=== PATIENT | female | born 1950 | race Caucasian/White ===

== ENCOUNTER 2021-07-22 08:42 | Observation (INO) ==
[~2021-07-22 08:42] MED LIST: Buffered Lidocaine 1% SYRIN 1 ml INTRADERM ONE; Famotidine IV 10 MG/ML 2 ml VIAL (20 mg) IV ONE; Lactated Ringers 1000 ml BAG 1,000 ML IV SCH; Levalbuterol 0.63MG/3ML NEB UNIT OF USE INH ONE
[2021-07-22] MEDS ORDERED: ceFAZolin 2 GM PREMIX 2 GM/50 ML BAG ONE (09:02)
[2021-07-22] MEDS ORDERED: Famotidine IV 10 MG/ML 2 ml VIAL (20 mg) ONE (09:02)
[2021-07-22] MEDS ORDERED: Levalbuterol 0.63MG/3ML NEB UNIT OF USE INH ONE (09:04)
[2021-07-22] MEDS ORDERED: Bupivacaine 0.5% W/EPI SDV 10 ML VIAL INJ ONE ×2 (10:28→10:38)
[2021-07-22] MEDS ORDERED: Propofol 10 MG/ML 20 ML BTL ONE (10:56)
[2021-07-22] MEDS ORDERED: Lidocaine 2% PF 5 ML VIAL ONE ×2 (10:56→13:05)
[2021-07-22] MEDS ORDERED: fentaNYL 250 mcg/5 ml 50 MCG/ML 5 ml VIAL (250 MCG) ONE (10:58)
[2021-07-22] MEDS ORDERED: Rocuronium 50 mg VIAL 10 mg/ml 5 ml VIAL (50 mg) ONE (10:59)
[2021-07-22] MEDS ORDERED: HYDROmorphone 0.5 MG/0.5 ML SYRINGE ONE ×2 (11:40→13:13)
[2021-07-22] MEDS ORDERED: Naloxone 0.4 mg VIAL 0.4 mg/ml 1 ml VIAL IV PRN (12:50)
[2021-07-22] MEDS ORDERED: Levalbuterol 0.63MG/3ML NEB UNIT OF USE INH PRN (12:50)
[2021-07-22] MEDS ORDERED: HYDROcodone/ACETAMIN 5/325 mg TAB PO PRN (12:50)
[2021-07-22] MEDS ORDERED: DiMENhydriNATE IV 50 mg/ml 1 ml VIAL IV PUSH PRN (12:50)
[2021-07-22] MEDS ORDERED: Ondansetron 4 mg VIAL 2 MG/ML 2 ml VIAL ONE (12:57)
[2021-07-22] MEDS ORDERED: Dexamethasone IV 4 MG/ML VIAL 1 ml VIAL ONE (12:57)
[2021-07-22] MEDS ORDERED: HYDROcodone/ACETAMIN 5/325 mg TAB ONE (13:27)
[2021-07-22] MEDS ORDERED: fentaNYL 100 mcg/2 ml 50 MCG/ML VIAL ONE ×2 (13:27→15:39)
[2021-07-22] MEDS: fentaNYL 100 mcg/2 ml 50 MCG/ML VIAL IV PRN ×4 (13:29→16:48)
[2021-07-22] MEDS ORDERED: Albuterol HFA INHALER 8 gm MDI INH PRN (16:29)
[2021-07-22] MEDS ORDERED: Polyethylene Glycol 3350 17 GM PACKET PO PRN (16:31)
[2021-07-22] MEDS ORDERED: Senna TAB 8.6 mg TAB PO PRN (16:31)
[2021-07-22] MEDS: oxyCODONE/Acetamin 5/325 mg TAB PO PRN ×2 (18:34→23:40)
[2021-07-22] MEDS: Heparin 5000 UNITS/ML 1 mL VIAL SUBCUT SCH (21:43)
[2021-07-22] MEDS ORDERED: Morphine 2 MG/ML SYRINGE IV PRN (23:46)
[2021-07-23] MEDS: Morphine 10 MG/ML VIAL (1 ml) IV PRN ×2 (00:19→02:53)
[2021-07-23] MEDS ORDERED: oxyCODONE/Acetamin 5/325 mg TAB PO PRN (01:00)
[2021-07-23] MEDS: oxyCODONE/Acetamin 5/325 mg TAB PO PRN ×2 (05:59→11:07)
[2021-07-23 07:01] LABS: Calcium 9.2 mg/dL (8.6-10.3); Potassium 4.4 mmol/L (3.5-5.0); eGFR CKD-EPI 67.4 (>60)
[2021-07-23] MEDS ORDERED: Fluticasone NASAL SPRAY 50MCG 16 gm SPRAY BTL INTRANASAL SCH (09:00)
[2021-07-23] MEDS ORDERED: Vitamin THERAPEUTIC TAB PO SCH (09:00)
[2021-07-23] MEDS ORDERED: Cholecalciferol (VIT D3) 1,000 unit TAB PO SCH (09:00)
[2021-07-23] MEDS ORDERED: Calcium Carb (TUMS) 500 mg CHEW TAB PO PRN (09:46)
[2021-07-23 11:09] VITALS: BP 116/78
[2021-07-23] MEDS: Heparin 5000 UNITS/ML 1 mL VIAL SUBCUT SCH (11:10)
== END 2021-07-23 12:50 | disposition home or self-care (01) ==
LOC: OR 08:42 → SSU 16:26 → INTOOBSV 16:26
PROVIDERS: ADMIT Orthopaedic Surgery; ATTEND Student in an Organized Health Care Education/Training Program